=== PATIENT | male | born 1960 | race Caucasian/White ===

== ENCOUNTER → 2016-07-14 | Outpatient (CLI) | payer BC ==
[~2016-07-14] MED LIST: CARV25TA PO; FINA5TAB PO; LEVO175T PO; LISI-729 PO
[2016-07-14 17:22] LABS: BASO % 0.3 %; BASO ABS # 0.02 K/uL (0-0.2); COMPLETE YES; EOS % 2.1 %; HEMATOCRIT 38.3 % (42-52); IG% 0.2 %; LYMPH % 29.2 %; LYMPH ABS # 1.84 K/uL (1.2-3.4); MEAN CELL VOLUME 94.3 fL (80-100); MEAN PLATELET VOLUME 12.4 fL (7.4-10.4); MONO % 7.8 %; NEUT % 60.4 %; PLATELET COUNT 180 K/uL (130-400); RED BLOOD COUNT 4.06 M/uL (4.7-6.1)
[2016-07-14 17:54] LABS: ALT/SGPT 21 U/L (12-78); AST/SGOT 14 U/L (15-37); BLOOD UREA NITROGEN 18 mg/dl (7-18); BUN/CREATININE RATIO 16.1 (10-20); CALCIUM 8.9 mg/dl (8.5-10.1); CARBON DIOXIDE 30 mmol/L (21-32); CHLORIDE 108 mmol/L (98-107); GLUCOSE 80 mg/dl (70-99); POTASSIUM 4.4 mmol/L (3.5-5.1); SODIUM 144 mmol/L (136-145)
[2016-07-14 18:04] LABS: ALB/GLOB RATIO 1.4 (0.9-2)
[2016-07-14 18:05] LABS: ALKALINE PHOSPHATASE 58 U/L (45-117); CHOLESTEROL 171 mg/dl (0-200); CHOLESTEROL/HDL RATIO 3.9; HDL CHOLESTEROL 44 mg/dl; LDL CHOLESTEROL CALCULATED 82 mg/dl; THYROID STIMULATING HORMONE 0.481 uIu/ml (0.300-4.500); TRIGLYCERIDES 224 mg/dl (0-150); VERY LOW DENSITY LIPOPROT CALC 45 mg/dl
--- NOTE | 2016-07-22 14:50 | CODING QUERY MEDICAL NECESSITY ---
CQSUPPORTING DIAGNOSIS NEEDED A supporting diagnosis is required for the test/procedure performed on this patient in order for us to be reimbursed by the patient's insurance. Please provide a supporting diagnosis for the following test/procedure listed below next to the test name along with your signature. *If there is no additional diagnosis for this patient that would support the following test/procedure please document that below next to the test/procedure. Test(s)/Procedure(s) that require a supporting diagnosis: DOS 07/14/16 PROSTATE SPECIFIC (PSA) Provider Signature: Date: Thank you Linsey [facility]s Health Information Management Once completed, please kindly fax back to [phone] For questions please call [phone]
== END | disposition home or self-care (01) ==
LOC: C.LAB1850 16:56
PROVIDERS: ATTEND Internal Medicine
DX: E78.00 Pure hypercholesterolemia, unspecified (principal); E89.0 Postprocedural hypothyroidism; D64.9 Anemia, unspecified; R35.0 Frequency of micturition; Z11.59 Encounter for screening for other viral diseases; N40.0 Benign prostatic hyperplasia without lower urinary tract symptoms; R97.20 Elevated prostate specific antigen [PSA]

== ENCOUNTER → 2016-08-13 | Outpatient (CLI) | payer BC ==
[2016-08-13 17:35] LABS: BLOOD UREA NITROGEN 13 mg/dl (7-18); CALCIUM 9.3 mg/dl (8.5-10.1); CARBON DIOXIDE 29 mmol/L (21-32); CHLORIDE 104 mmol/L (98-107); GLUCOSE 86 mg/dl (70-99); POTASSIUM 4.2 mmol/L (3.5-5.1); SODIUM 141 mmol/L (136-145)
== END | disposition home or self-care (01) ==
LOC: C.LAB1850 11:53
PROVIDERS: ATTEND Internal Medicine Cardiovascular Disease
DX: I42.8 Other cardiomyopathies (principal); R97.20 Elevated prostate specific antigen [PSA]

== ENCOUNTER → 2016-09-13 | Outpatient (CLI) | payer BC ==
[2016-09-13 17:36] LABS: HEMATOCRIT 41.9 % (42-52); MEAN CELL VOLUME 95.7 fL (80-100); MEAN CORPUSCULAR HEMOGLOBIN 32.4 pg (25-34); MEAN CORPUSCULAR HGB CONC 33.9 g/dl (32-36); PLATELET COUNT 193 K/uL (130-400); RED BLOOD COUNT 4.38 M/uL (4.7-6.1)
[2016-09-13 17:47] LABS: PARTIAL THROMBOPLASTIN RATIO 1.1; PROTHROMBIN TIME (PATIENT) 10.4 SECONDS (9.0-12.0)
[2016-09-13 17:51] LABS: BLOOD UREA NITROGEN 13 mg/dl (7-18); BUN/CREATININE RATIO 10.6 (10-20); CALCIUM 8.4 mg/dl (8.5-10.1); CARBON DIOXIDE 26 mmol/L (21-32); CHLORIDE 106 mmol/L (98-107); GLUCOSE 129 mg/dl (70-99); POTASSIUM 3.9 mmol/L (3.5-5.1); SODIUM 143 mmol/L (136-145)
== END | disposition home or self-care (01) ==
LOC: C.LABBC 13:29
PROVIDERS: ATTEND Internal Medicine Cardiovascular Disease
DX: Z01.818 Encounter for other preprocedural examination (principal)

== ENCOUNTER → 2016-09-16 | Day surgery (SDC) | payer BC ==
[~2016-09-16] VITALS: Ht 188 cm; Wt 98.0 kg
[2016-09-16] VITALS (7 sets, daily range): BP systolic 138–148; BP diastolic 84–90; PULSE 56–70; TEMP 36.3–36.8; O2SAT 96–100; Ht 188 cm; Wt 98.0 kg
[~2016-09-16] MED LIST changes: +ACETAMINOPHEN 325 MG TAB PO PRN; +BACITRACIN 50000 UNIT VIAL ONE; +BACITRACIN OINT 0.9 GM PKT ONE; +FENTANYL CITRATE INJ 50 MCG/1 ML 2 ML VIAL ONE; +KEFZOL SPECIAL PROCEDURE STOCK 1 GM ADDVIAL IV ONE; +KETOROLAC TROMETHAMINE 10 MG TAB PO PRN; +LACTATED RINGER'S 1000ML IV SCH; +LIDOCAINE HCL 1% 20 ML VIAL ONE; +MIDAZOLAM HCL 5 MG/ML 1 ML VIAL ONE
--- NOTE | 2016-09-16 10:48 | History & Physical Bridge Note ---
H&P Re-Evaluation Bridge Note: I have examined the patient, reviewed the History & Physical and in the interval since the performance of the History & Physical I have noted the following changes of clinical significance: No changes noted. I reviewed the indications, procedure, risks and alternatives of ICD replacement and possible lead revision with him and his son and they understand and he agrees to proceed. Consent obtained.
--- NOTE | 2016-09-16 10:49 | Procedure Note ---
Pre-Mod Sedation Assessment General Date of Moderate Sedation: Sep 16, 2016. Vital Signs: Vital Signs Past 12 Hours Date Time Temp Pulse Resp B/P (MAP) Pulse Ox O2 Delivery O2 Flow Rate FiO2 09/16/16 09:00 36.8 58 20 144/85 (104) 98 Room Air Review Cardiovascular: regular rate, rhythm Abdomen: normal bowel sounds Lungs: lungs clear Pre-Sedation Airway Assessment Oral Cavity: Capped Teeth Short Thick Neck: No Hx of Sleep Apnea: No Smoking Status: Never Smoker Procedure Planning Contraindications-for Mod Sed: None Yes Notes The planned sedation has been discussed with the patient and consent obtained. I have identified the patient, determined the appropriateness of sedation and have assessed the patient immediately prior to the procedure. All medicine(s) and interventions are by my order.
--- NOTE | 2016-09-16 12:05 | Cardiology Procedure Brief Nt ---
Preliminary Cardiology Note Procedure Date Sep 16, 2016. Pre-Procedure Diagnosis ICD BREANA Post-Procedure Diagnosis same Procedure(s) Performed Biventricular ICD replacement Ortho Assistant Dr. Sanz Education Sales Consultant(s) none Estimated Blood Loss 20 cc Preliminary Findings Excellent Chronic lead measurements, successful ICD replacement Recommendations Monitor briefly and discharge Specimens Old ICD, return to Medtronic Anesthesia local with sedation Complication(s) None Disposition MTU
--- NOTE | 2016-09-16 12:07 | Procedure Note ---
Post-Mod Sedation Assessment General Date of Moderate Sedation Sep 16, 2016. Vital Signs: Vital Signs Past 12 Hours Date Time Temp Pulse Resp B/P (MAP) Pulse Ox O2 Delivery O2 Flow Rate FiO2 09/16/16 12:00 60 16 132/80 (97) 96 Room Air 09/16/16 11:55 Room Air 09/16/16 11:50 Room Air 09/16/16 11:45 57 16 133/86 (102) 97 Room Air 09/16/16 09:00 36.8 58 20 144/85 (104) 98 Room Air Review - Discharge Criteria Vital Signs Stable: Yes Alert/Oriented/Conversant: Yes Returned to Baseline Mental St: Yes Nausea Absent/Minimal: Yes Pain/Discomfort/Absent/Minimal: Yes Normal/Baseline Respirations: Yes Active Bleeding?: No
--- NOTE | 2016-09-16 12:50 | Discharge Instructions ---
Discharge Instructions Date of Service Sep 16, 2016. Admission Reason for Admission: ICD battery depletion Discharge Discharge Diagnosis / Problem: ICD replacement Discharge Goals Goal(s): Improve disease control Activity Recommendations Activity Limitations: resume your previous activity . Instructions / Follow-Up Instructions / Follow-Up ACTIVITY RECOMMENDATIONS: * Do not raise affected arm over head for 2 weeks. SPECIAL CARE INSTRUCTIONS: * If bleeding occurs, apply direct pressure to area for 5 minutes. * Call your doctor if you have severe pain, fever, drainage or bleeding at site. * Keep dressing on and dry. * Keep any scheduled doctor's appointment. * Implant Card - hand held device with website information given. SKIN IRRITATION: * You may experience some redness and/or swelling in the area where radiation was administered. If any skin irritation occurs, please contact your family physician. FOLLOW UP VISIT: Dr. Sanz Tuesday09/17/2016 10:00 AM Current Hospital Diet Patient's current hospital diet: Regular Diet Discharge Diet Recommended Diet: AHA Diet (Heart Healthy) Pending Studies Studies pending at discharge: no Laboratory Results Lipid Panel Test 07/14/16 16:59 Range/Units Triglycerides Level 224 H 0-150 mg/dl Cholesterol Level 171 0-200 mg/dl HDL Cholesterol 44 mg/dl Cholesterol/HDL Ratio 3.9 LDL Cholesterol, Calculated 82 mg/dl Medical Emergencies . Who to Call and When: Medical Emergencies: If at any time you feel your situation is an emergency, please call 911 immediately. . Non-Emergent Contact Non-Emergency issues call your: Primary Care Provider . . "Provider Documentation" section prepared by Swapnil Sanz. . VTE Core Measure Inpt VTE Proph given/why not?: Treatment not indicated
--- NOTE | 2016-09-16 14:05 | OPERATIVE REPORT ---
DATE OF OPERATION: 09/16/2016 PREOPERATIVE DIAGNOSIS: Implantable cardioverter-defibrillator elective replacement indicator. POSTOPERATIVE DIAGNOSIS: Same. PROCEDURE: Biventricular ICD replacement. SURGEON: Swapnil Sanz MD ANESTHESIA: Local with sedation. HISTORY: This is a 56-year-old male who has a history of left bundle-branch block and cardiomyopathy, catheterization showed normal coronary arteries. His ejection fraction initially improved with medical therapy, however, he had progressive left ventricular dysfunction and ejection fraction in 2009 was 27%. His ejection fraction remained at 30% on medical therapy; therefore a biventricular ICD was implanted on 07/01/2011. Subsequently, his left ventricular ejection fraction improved. His original ICD has reached replacement time due to battery depletion (voltage 2.63). He is therefore brought to the laboratory for device replacement. The leads appear to be good. OPERATION AND FINDINGS: After obtaining informed consent for the procedure, he was brought to the laboratory on the morning of 09/16/2016 being n.p.o. after midnight. He was identified in the laboratory, prepped and draped in standard sterile manner for a left-sided ICD replacement. The left prepectoral region was anesthetized with 1% lidocaine local anesthetic and a 6 cm incision was made through the old implant scar and carried down to the ICD generator. The generator was dissected free of tissue and explanted. It was confirmed to be a Medtronic Protecta XT CRTD model L583BRO, serial number [id number], implanted 07/01/2011. This device will be returned to [employer]. The atrial lead is a Medtronic model 5076, serial number [id number] implanted 07/01/2011. This lead was evaluated in bipolar configuration and a pulse width of 0.5 milliseconds. Pacing threshold was 0.5 volts with a current of 0.9 milliamp, 5-volt lead impedance was 448 ohms, P-waves were sensed at 1.7 millivolts. This is a good threshold and this lead can be used. The right ventricular defibrillator lead is a Medtronic model 6947, serial number [id number], implanted 07/01/2011. This lead was evaluated in bipolar configuration at a pulse width of 0.5 milliseconds. Pacing threshold was 0.4 volts with a current of 0.4 milliamp, 5-volt lead impedance is 737 ohms and R-waves were sensed at 11.3 millivolts. This is a good threshold and this lead can be used. The left ventricular lead is a Medtronic model 4194, serial number [id number], implanted 07/01/2011. This lead was evaluated in the tip to ring configuration and the pacing threshold was 1.2 volts with a current of 1.7 milliamp, 5-volt lead impedance was 773 ohms and R-waves were sensed at 10.1 millivolts. This is a good threshold and this lead can be used. A new ICD (Medtronic Viva XT) was attached to the leads and found to be functioning normally. A bacitracin-soaked sponge had been placed in the pocket and this was removed, hemostasis was obtained and the ICD was placed in the pocket. The incision was closed with a running double subcutaneous closure of 3-0 V-Loc absorbable suture, followed by a running subcuticular skin closure of 4-0 V-Loc absorbable suture. Bacitracin ointment was placed on incision and a pressure dressing applied. The patient tolerated the procedure well, there were no complications and estimated blood loss was 20 mL. The patient was transferred to the ambulatory unit for monitoring and subsequent discharge. Details of the explanted defibrillator and the chronic leads are noted above. The new ICD is a Medtronic Viva XT CRTD model LLDL4W9, serial number [id number]. The ICD was reprogrammed in the laboratory to final settings. This is not an MRI compatible system. [facility]
== END | disposition home or self-care (01) ==
LOC: C.ACU 08:37
PROVIDERS: ATTEND Internal Medicine Cardiovascular Disease
DX: Z45.09 Encounter for adjustment and management of other cardiac device (principal); I50.9 Heart failure, unspecified; I44.7 Left bundle-branch block, unspecified; I42.8 Other cardiomyopathies; E78.00 Pure hypercholesterolemia, unspecified; I10 Essential (primary) hypertension; Z83.3 Family history of diabetes mellitus; Z82.49 Family history of ischemic heart disease and other diseases of the circulatory system; Z79.899 Other long term (current) drug therapy

== ENCOUNTER → 2016-11-24 | Outpatient (CLI) | payer BC ==
[~2016-11-24] MED LIST changes: -ACETAMINOPHEN 325 MG TAB PO PRN; -BACITRACIN 50000 UNIT VIAL ONE; -BACITRACIN OINT 0.9 GM PKT ONE; -FENTANYL CITRATE INJ 50 MCG/1 ML 2 ML VIAL ONE; -KEFZOL SPECIAL PROCEDURE STOCK 1 GM ADDVIAL IV ONE; -KETOROLAC TROMETHAMINE 10 MG TAB PO PRN; -LACTATED RINGER'S 1000ML IV SCH; -LIDOCAINE HCL 1% 20 ML VIAL ONE; -MIDAZOLAM HCL 5 MG/ML 1 ML VIAL ONE
== END | disposition home or self-care (01) ==
LOC: C.PATHSPEC 17:34
PROVIDERS: ATTEND Urology
DX: R97.20 Elevated prostate specific antigen [PSA] (principal)